=== PATIENT | female | born 1990 | race African-American/Black ===

== ENCOUNTER 2020-11-26 13:01 | Day surgery (SDC) | payer OTHER ==
[2020-11-24 11:00] VITALS: BMI 44.4
[2020-11-26] MEDS ORDERED: BUPIVACAINE HCL/EPINEPHRINE/PF 30 ML VIAL IJ ONE (13:28)
[2020-11-26] MEDS ORDERED: LIDOCAINE HCL 2% (20ML MULTI-DOSE VIAL) ONE (13:29)
[2020-11-26] MEDS ORDERED: PROMETHAZINE HCL 25 MG/1 ML VIAL IVPUSH PRN (13:40)
[2020-11-26] MEDS ORDERED: oxyCODONE HCL 5 MG TABLET PO PRN (13:40)
[2020-11-26] MEDS ORDERED: ONDANSETRON 4 MG/2 ML VIAL IVPUSH PRN (13:40)
[2020-11-26] MEDS ORDERED: LACTATED RINGERS SOLUTION 1,000 ML IV SCH (13:45)
[2020-11-26] MEDS ORDERED: MIDAZOLAM HCL 2 MG/2 ML SINGLE DOSE VIAL ONE (13:49)
[2020-11-26] MEDS ORDERED: PROPOFOL 20 ML ONE ×5 (13:50→15:30)
[2020-11-26] MEDS ORDERED: BUPIVACAINE HCL 100 ML ONE (14:13)
[2020-11-26] MEDS ORDERED: LIDOCAINE HCL/PF 2% SDV 5ML VIAL ONE (14:19)
[2020-11-26] MEDS ORDERED: ceFAZolin SODIUM 1 GM VIAL ONE (14:19)
[2020-11-26] MEDS ORDERED: SODIUM CHLORIDE 0.9% P/F 10 ML VIAL IJ ONE (14:19)
[2020-11-26] MEDS ORDERED: KETOROLAC TROMETHAMINE 30 MG/1 ML VIAL ONE (14:23)
[2020-11-26] MEDS ORDERED: LABETALOL HCL 5 MG/1 ML (100MG/20 ML VIAL) IVPUSH ONE (16:38)
[2020-11-26] MEDS ORDERED: LABETALOL HCL 5 MG/1 ML (100MG/20 ML VIAL) ONE (16:46)
[2020-11-26 17:29] VITALS: TEMP 97.7
[2020-11-26 18:24] VITALS: BP 109/81; PULSE 80
== END 2020-11-26 18:20 | disposition home or self-care (01) ==
LOC: FASU 13:01
PROVIDERS: ATTEND Podiatrist Foot Surgery
PROC: 0SGJ0JZ Fusion of Left Tarsal Joint with Synthetic Substitute, Open Approach (ICD-10-PCS; principal; 2020-11-26 14:33)
DX: M20.32 Hallux varus (acquired), left foot (principal)
CPT/HCPCS: 28297; 28306; C1713; 73630-TC-LT; 84703; 88304-TC; 88311-TC; 94760

== ENCOUNTER 2021-06-22 11:44 | Day surgery (SDC) | payer OTHER ==
[2021-06-16 12:04] VITALS: BMI 42.7
[2021-06-22] MEDS ORDERED: LIDOCAINE HCL/PF 2% SDV 5ML VIAL ONE ×2 (12:51→13:48)
[2021-06-22] MEDS ORDERED: BUPIVACAINE HCL 100 ML ONE ×2 (12:52→14:59)
[2021-06-22] MEDS ORDERED: MIDAZOLAM HCL 2 MG/2 ML SINGLE DOSE VIAL ONE (13:10)
[2021-06-22] MEDS ORDERED: PROPOFOL 20 ML ONE ×6 (13:15→15:10)
[2021-06-22] MEDS ORDERED: SUCCINYLCHOLINE CHLORIDE 200 MG/10 ML SYRINGE ONE (13:15)
[2021-06-22] MEDS ORDERED: BUPIVACAINE HCL/PF 0.5% (5MG/ML) 10 ML VIAL NR ONE ×2 (15:07→15:15)
[2021-06-22] MEDS ORDERED: oxyCODONE HCL 5 MG TABLET PO PRN ×2 (15:28)
[2021-06-22] MEDS ORDERED: ACETAMINOPHEN 325 MG TABLET (FP) PO PRN (15:28)
[2021-06-22] MEDS ORDERED: ONDANSETRON 4 MG/2 ML VIAL IVPUSH PRN (15:28)
[2021-06-22 17:24] VITALS: BP 128/84; PULSE 78; TEMP 97.8
== END 2021-06-22 17:12 | disposition home or self-care (01) ==
LOC: FASU 11:44
PROVIDERS: ATTEND Podiatrist Foot Surgery
PROC: 0QSQ04Z Reposition Right Toe Phalanx with Internal Fixation Device, Open Approach (ICD-10-PCS; 2021-06-22)
PROC: 0QSN04Z Reposition Right Metatarsal with Internal Fixation Device, Open Approach (ICD-10-PCS; principal; 2021-06-22 13:36)
DX: M20.11 Hallux valgus (acquired), right foot (principal)
CPT/HCPCS: 28299; C1713; 73630-TC-RT-FY; 84703; 94760